=== PATIENT | female | born 1990 | race Caucasian/White ===

== ENCOUNTER 2016-10-31 11:21 | Emergency (ER) | payer BC, OTHER ==
[2016-03-27 22:48] VITALS: BMI 19.9
--- NOTE | 2016-10-31 13:56 | OBHP ---
Datetime: 10/31/2016 13:48 IP Adm Impression: , intrauterine IP Adm Impression Other: nst reactive IP Admit Plan: Discharge home Admit Comment, IP Provider: chief complaint-decreased movement HPI 26 y/o at 27.6 wga with c/o decreased movement sinec alst night.Patient states that she usually feels the baby move actively but did not feel movement last night.This afernoon after ar rival to jan started feeling the movement course - care with dr chester PMH denies PSH denies OBGYN HX Social hx denies tobacco,alcohol or illicit drug use Exam see exam section A/P 26 y/o at 27.6 wga with c/o decreased movement.NST reactive -discharge home -follow up with dr chester next week Abdomen - PN: Normal Back - PN: Normal Lungs - PN: Normal Heart - PN: Normal Neurologic - PN: Normal General - PN: Normal EGA AdmitDate IP: 27.6 Vital Signs Provider: Reviewed; Within Normal Limits IP Chief Complaint: evaluation FHR Category Provider Fetus A: Category I DTRs - PN: Normal
[2016-10-31 15:04] VITALS: BP 110/66; PULSE 104; TEMP 99.2; O2SAT 98
[2016-11-01 14:38] VITALS: RESP 19
== END 2016-10-31 13:48 | disposition home or self-care (01) ==
LOC: C.EROB 11:21
DX: O36.8120 Decreased fetal movements, second trimester, not applicable or unspecified (principal); Z3A.27 27 weeks gestation of pregnancy

== ENCOUNTER 2016-11-28 10:43 | Emergency (ER) | payer BC ==
[2016-03-27 22:48] VITALS: BMI 19.9
--- NOTE | 2016-11-28 12:39 | US ---
OB limited/biophysical profile ultrasound Indication: Decreased movement Comparison: No priors available for comparison. Technique: Real-time ultrasound was performed through the pelvis. Findings: There is a single living fetus in cephalic presentation. Amniotic fluid volume is within normal limits. Posterior placenta. The placenta is not previa. There are no adnexal masses or cysts evident. Cervix length measures approximately 2.8 cm. The study was performed for the emergent evaluation of decreased movement, and the whole anatomic survey of the fetus was not performed. Fullness of bilateral renal pelves noted. Measurements and calculations: Fetus has a composite sonographic age of 31 weeks 3 days. This calculation is based on the biparietal diameter, head circumference, abdominal circumference, and femur length. Estimated heart rate 130.8 beats per min. Impression: Single living fetus with a composite sonographic age of 31 weeks 3 days. Estimated heart rate 130.8 beats per min. Cervix length measures approximately 2.8 cm. Fullness of bilateral renal pelves. Recommend correlation with dedicated OB anatomy ultrasound if indicated.
--- NOTE | 2016-11-28 14:46 | OBHP ---
Datetime: 11/28/2016 11:19 IP Adm Impression Other: nst reactive IP Admit Plan: Discharge home Admit Comment, IP Provider: Chief complainy-decreased movement HPI 26 yo with LMP 04/12/2016 and an YAMEL (01/28/17) as per ultrasound. Patient presents to [facility] with complaints of decrease movement that was observed yesterday evening. Patient reports that she has felt the baby move 3x this since 6am this morning. Patient denies any contractions, leakage of fluid, vaginal bleeding, urinary symptoms and recent sexual activity. 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 Denies hx of tobacco, ETOH and illicit drugs Vitals: BP:109/62, HR:92 SpO2:99 Physical Examination: see above A/P: 26 yo with complaints of decrease movement 1. Stable, Afebrile 2. Observation with EFM: f/u NST 3. F/u Limited US and BPP: 4. If normal NST, BPP and CHELSEA, then discharge patient home with movement instructions 5. Plans d/w with attending Triage discharge: Patient's ultrasound was within normal limits with BPP of 8/8 and bilateral pelvic fullness and re active NST. Patient was discharged home with appropriate instructions and to follow up with her Ob/gy n, Dr. Harvey. Patient agress and understood. Patient is scheduled to see Dr. Harvey, 12/01/16 Mandi Bates DO, PGY-1 OB attending patient examined.agree with resident exam, assessment and plan Abdomen - PN: Normal Back - PN: Normal Lungs - PN: Normal Heart - PN: Normal General - PN: Normal Contraction Comments Provider: none Comments, ACOG Physical Exam: Gen: AAOX3, NAD Cardio: RRR, normal S1 and S2 Pulm: CTA bilaterally Abdomen: Soft, gravid Ext: No edema, no cyanosis and no clubbing EFM: FHR: 140, + accels and no decels EGA AdmitDate IP: 31.2 IP Chief Complaint: Decreased movement FHR Category Provider Fetus A: Category I
[2016-11-28 17:11] VITALS: BP 108/53; PULSE 86; RESP 18; TEMP 96.7; O2SAT 98
== END 2016-11-28 13:09 | disposition home or self-care (01) ==
LOC: C.EROB 10:43
DX: O36.8130 Decreased fetal movements, third trimester, not applicable or unspecified (principal); Z3A.31 31 weeks gestation of pregnancy

== ENCOUNTER 2016-12-12 01:00 | Emergency (ER) | payer BC, OTHER ==
[2016-03-27 22:48] VITALS: BMI 19.9
[2016-12-12 06:34] VITALS: BP 106/46; PULSE 74; RESP 20; TEMP 98
== END 2016-12-12 02:34 | disposition home or self-care (01) ==
LOC: C.EROB 01:00
DX: Z03.79 Encounter for other suspected maternal and fetal conditions ruled out (principal)

== ENCOUNTER 2017-01-01 11:30 | Emergency (ER) | payer BC ==
[2016-03-27 22:48] VITALS: BMI 19.9
[2017-01-01 12:32] LABS: RBC URINE 1 /hpf (0-3); URINE BILIRUBIN NEGATIVE (NEGATIVE); URINE BLOOD NEGATIVE (NEGATIVE); URINE COLOR Straw (YELLOW); URINE GLUCOSE (UA) NORMAL (Normal); URINE KETONE NEGATIVE (NEGATIVE); URINE LEUKOCYTE ESTERASE 1+ Leu/uL (Negative); URINE PROTEIN NEGATIVE (NEGATIVE); URINE UROBILINOGEN NORMAL mg/dL (0.2-1.0); WBC URINE 4 /hpf (0-5)
[2017-01-01] MEDS ORDERED: Lactated Ringer's 500 ML IV ONE (12:46)
--- NOTE | 2017-01-01 13:53 | US ---
Indication: Rule out ROM OB limited/biophysical profile Comparison: None available. Technique: Real-time ultrasound was performed through the pelvis. Findings: There is a single living fetus in cephalic presentation. Amniotic fluid volume is within normal limits. Posterior placenta. The placenta is not previa. There are no adnexal masses or cysts evident. Cervix length measures approximately 3.9 cm. Measurements and calculations: Fetus has a composite sonographic age of 35 weeks 3 days. This calculation is based on the biparietal diameter, head circumference, abdominal circumference, and femur length. Estimated heart rate 142.5 beats per min. Biophysical profile: movements 2/2 breathing 2/2 tone 2/2 Amniotic fluid 2/2 Total score impression: 10/17 Impression: Single living fetus with a composite sonographic age of 35 weeks 3 days. Estimated heart rate 142.5 beats per min. Biophysical profile 10/17
--- NOTE | 2017-01-01 14:12 | OBDCSUM ---
Datetime: 01/01/2017 14:11 Discharged to, Provider: Home Follow up at, Provider: 1day Follow up in weeks, Provider: dr chester Disch Activity Restrictions: No sexual activity; Nothing in vagina - [place], tampons, douche Discharge Comment, Provider: ptl given po hyra cont pnv f/u dr chester in 1day Discharge Diagnosis Prov Other: 36weeks r/o rom nst
--- NOTE | 2017-01-01 14:41 | OBHP ---
Datetime: 01/01/2017 11:54 Admit Comment, IP Provider: HPI: Patient is a 26 yo with LMP 04/12/2016 and an YAMEL (01/28/17) as per ultrasound. Patient present s to [facility] with complaints of contractions that started at 6:45am this morning after passing her mucus plug at 6:30am. Patientt reports that she has had lower back pressure/discomfort since yesterday and admits to 2 episodes of vomiting yesterday and an episode of vomiting this morning after breakfast. Patient admits to symptoms of nausea for the past week, frequent urination since this morning and mil d headache. Patient denies blurry vision, chest pain, palpitations, fever, chills, vaginal bleeding, and leakage of fluid but admits to irregular contractions, movements, nausea, vomiting and freq uent urination. 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 Denies hx of tobacco, ETOH and illicit drugs Vitals: BP:117/69, HR:97 SpO2:99 Physical Examination: see above A/P: 26 yo at 36 weeks and 3 days with complaints of irregular contractions, lower back pain and frequent urination 1. Stable, Afebrile 2. Observation with EFM: Reactive NST 3. BPP (10/17) 4. UA negative 5. Patient is to be discharge home and to follow up with her primary obgyn outpatient tomorrow as all appropriate test results were within normal limits 6. Plans d/w with attending Mandi Bates DO, PGY-1 Dr Bernardo rachel with above FHR - Baseline A Provider: 120 Contraction Comments Provider: occ Comments, ACOG Physical Exam: Gen: AAOX3, NAD Cardio: RRR, normal S1 and S2 Pulm: CTA bilaterally Abdomen: Soft, gravid Speculum: No sign leakage of fluid and nitrazine test negative Pelvic Exam; No dilation and cervix closed Ext: No edema, no cyanosis and no clubbing EFM: FHR: 140, + accels and no decels IP Hx Assessment: The History has been Reviewed and is Current EGA AdmitDate IP: 36.1 IP Chief Complaint: Uterine contractions; Signs/symptoms UTI NICHD Variability Prov Fetus A: Moderate 6-25bpm NICHD Accel Fetus A IP Provider: [id number] FHR Category Provider Fetus A: Category I Dilatation, Provider: 0 Effacement, Provider: 0 Station, Provider: -3
[2017-01-01 18:51] VITALS: BP 110/61; PULSE 65; RESP 18; TEMP 98.6
== END 2017-01-01 14:22 | disposition home or self-care (01) ==
LOC: C.EROB 11:30
DX: O26.893 Other specified pregnancy related conditions, third trimester (principal); Z3A.36 36 weeks gestation of pregnancy; M54.5 Low back pain; R35.0 Frequency of micturition
CPT/HCPCS: 76815; 76818; 81001; 99283; J7120